=== PATIENT | female | born 2000 | race Hispanic/Latino ===

== ENCOUNTER 2020-06-14 00:02 | Emergency (ER) | payer SELFPAY ==
[~2020-06-14] VITALS: Ht 160 cm; Wt 94.3 kg
[2020-06-14] MEDS ORDERED: FAMOTIDINE 20 MG/2 ML VIAL IV STA (00:23)
[2020-06-14] MEDS ORDERED: ONDANSETRON HCL INJ 2MG/ML 2ML 2 MG/ML VIAL IV STA ×2 (00:23→01:54)
[2020-06-14] MEDS ORDERED: FAMOTIDINE 20 MG/2 ML VIAL IV ONE (00:41)
[2020-06-14] MEDS ORDERED: ONDANSETRON HCL INJ 2MG/ML 2ML 2 MG/ML VIAL ONE ×2 (00:41→02:05)
[2020-06-14] MEDS ORDERED: SODIUM CHLORIDE 0.9% 50ML 50 ML ONE (00:58)
[2020-06-14] MEDS ORDERED: IOPAMIDOL 370 MG/ML 200 ML INFUS..BTL INJ ONE (00:58)
[2020-06-14] MEDS ORDERED: MORPHINE SULFATE INJ 4 MG/ML INJ 1ML IV STA (01:54)
[2020-06-14] MEDS ORDERED: MORPHINE SULFATE INJ 4 MG/ML INJ 1ML ONE (02:05)
[2020-06-14 02:21] VITALS: BP 101/64
== END 2020-06-14 02:30 | disposition home or self-care (01) ==
LOC: FSED 00:24
DX: R10.13 Epigastric pain (principal); R11.2 Nausea with vomiting, unspecified; K80.80 Other cholelithiasis without obstruction
CPT/HCPCS: 74177; 80048; 80076; 81003; 81025; 85025; 96374; 96375; 96376; 99284; J2270; J2405; Q9967